=== PATIENT | female | born 1980 | race African-American/Black ===

== ENCOUNTER 2020-01-26 00:17 | Emergency (ER) | payer OTHER ==
[~2020-01-26] VITALS: Ht 172.7 cm; Wt 84.4 kg
[2020-01-26 00:38] VITALS: Ht 172.7 cm; Wt 84.4 kg
[2020-01-26 02:07] VITALS: BP 112/72
== END 2020-01-26 02:07 | disposition home or self-care (01) ==
LOC: ED 00:17
DX: H60.92 Unspecified otitis externa, left ear (principal); J45.909 Unspecified asthma, uncomplicated; Z91.018 Allergy to other foods

== ENCOUNTER 2020-08-04 17:28 | Emergency (ER) | payer OTHER ==
[~2020-08-04] VITALS: Ht 172.7 cm; Wt 82.6 kg
[2020-08-04 17:44] VITALS: BP 123/78; Ht 172.7 cm; Wt 82.6 kg
[2020-08-04] MEDS ORDERED: OCU AS (17:59)
[2020-08-04] MEDS ORDERED: IBU600 M2 PO (17:59)
== END 2020-08-04 18:17 | disposition home or self-care (01) ==
LOC: ED 17:28
DX: H60.92 Unspecified otitis externa, left ear (principal); J45.909 Unspecified asthma, uncomplicated; Z91.018 Allergy to other foods
CPT/HCPCS: J1885